=== PATIENT | female | born 1990 | race Caucasian/White ===

== ENCOUNTER 2020-10-03 13:46 | Inpatient (IN) | payer OTHER ==
[~2020-10-03] VITALS: Ht 170.2 cm; Wt 77.3 kg
[2020-10-03 15:47] LABS: BASOPHILS % (AUTO) 0.5 % (0.0-2.0); EOSINOPHILS % (AUTO) 0.1 % (1.0-6.0); HEMATOCRIT 34.3 % (36-46); HEMOGLOBIN 11.3 g/dL (12.0-16.0); LYMPHOCYTES # (AUTO) 1.1 K/uL (1.0-4.8); LYMPHOCYTES % (AUTO) 10.6 % (22.0-44.0); MEAN CORPUSCULAR HEMOGLOBIN 25.5 pg (26.0-34.0); MEAN CORPUSCULAR VOLUME 77 fL (80-100); MONOCYTES # (AUTO) 0.4 K/uL (0.1-1.0); MONOCYTES % (AUTO) 4.4 % (2.0-9.0); NEUTROPHILS # (AUTO) 8.6 K/uL (1.8-7.7); NEUTROPHILS % (AUTO) 84.4 % (40.0-70.0); PLATELET COUNT (AUTO) 321 K/uL (150-450); RED BLOOD CELL COUNT(AUTO) 4.44 MIL/uL (4.00-5.20); RED CELL DISTRIBUTION WIDTH 17.2 % (11.5-14.5)
[2020-10-03 15:55] LABS: ANION GAP 7 mmol/L (8-16); CALCIUM, TOTAL 9.6 mg/dL (8.8-10.5); CARBON DIOXIDE 29 mmol/L (22-29); CHLORIDE 100 mmol/L (98-107); CREATININE 0.96 mg/dL (0.60-1.30); GLOMERULAR FILTR. RATE CALC > 60 mL/min (>60); GLUCOSE,RANDOM 119 mg/dL (70-110); POTASSIUM 3.9 mmol/L (3.5-5.1); SODIUM SERUM 136 mmol/L (136-145); UREA NITROGEN, BLOOD 12 mg/dL (7-18)
[2020-10-03 16:01] LABS: AMPHET/METH SCREEN,URINE POSITIVE (NEGATIVE); BARBITURATE SCREEN, URINE NEGATIVE (NEGATIVE); BENZODIAZEPINES SCREEN,URINE NEGATIVE (NEGATIVE); CANNABINOID SCREEN,URINE NEGATIVE (NEGATIVE); COCAINE SCREEN,URINE NEGATIVE (NEGATIVE); METHADONE SCREEN, URINE NEGATIVE (NEGATIVE); OPIATE SCREEN,URINE POSITIVE (NEGATIVE)
[2020-10-03 16:02] LABS: PHENCYCLIDINE SCREEN,URINE NEGATIVE (NEGATIVE)
[2020-10-03 16:15] LABS: ALANINE AMINOTRANSFERASE 13 U/L (12-78); ALBUMIN 3.4 g/dL (3.4-5.0); ALKALINE PHOSPHATASE 80 U/L (46-116); ASPARTATE AMINOTRANSFERASE 14 U/L (15-37); BILIRUBIN,TOTAL 0.5 mg/dL (0.1-1.0); HCG,QUANTITATIVE 1 mIU/mL (0-6); TOTAL PROTEIN, SERUM 8.5 g/dL (6.4-8.2)
[2020-10-03] MEDS ORDERED: ACETAMINOPHEN 325 MG TABLET PO ONE (16:15)
[2020-10-03 16:19] LABS: COVID AG,FIA SOURCE NASOPHARYNGEAL
[2020-10-03 16:49] LABS: INFLUENZA TYPE A NEGATIVE FOR TYPE A (NEGATIVE); INFLUENZA TYPE B NEGATIVE FOR TYPE B (NEGATIVE)
[2020-10-03] MEDS ORDERED: CloNIDine HCL 0.1 MG TABLET PO ONE (17:00)
[2020-10-03] MEDS ORDERED: ONDANSETRON HCL 4 MG/2 ML VIAL IVP PRN ×2 (17:15→18:30)
[2020-10-03] MEDS ORDERED: ACETAMINOPHEN 325 MG TABLET PO PRN (17:15)
[2020-10-03] MEDS ORDERED: 0.9% SODIUM CHLORIDE 10 ML SYRINGE IVP PRN ×2 (17:15→18:30)
[2020-10-03 17:34] VITALS: BP 133/85
[2020-10-03] MEDS ORDERED: INFLUENZA VIRUS VACCINE QVS 2020-21 (6MO+)/PF 60 MCG/0.5 ML SYRINGE IM ONE (18:15)
[2020-10-03] MEDS ORDERED: CloNIDine HCL 0.1 MG TABLET PO PRN (18:30)
[2020-10-03] MEDS ORDERED: BISACODYL 10 MG RECTAL RECTAL SUPPOSITORY PR PRN (18:30)
[2020-10-03] MEDS: PANTOPRAZOLE SODIUM 40 MG DR TABLET PO SCH (18:30)
[2020-10-03] MEDS ORDERED: IPRATROPIUM BROMIDE 0.5 MG/2.5 ML NEB SOLUTION NEB PRN (18:30)
[2020-10-03] MEDS ORDERED: ALBUTEROL SULFATE 2.5 MG/0.5 ML NEB SOLUTION NEB PRN (18:30)
[2020-10-03] MEDS ORDERED: MAGNESIUM HYDROXIDE SUSPENSION 30 ML UDCUP PO PRN (18:30)
[2020-10-03 19:38] VITALS: BP 125/68
[2020-10-03] MEDS ORDERED: HYDROCODONE/ACETAMINOPHEN 5-325 MG TABLET PO ONE (21:30)
[2020-10-03 23:20] VITALS: BP 133/67
[2020-10-04 04:24] VITALS: BP 130/74
[2020-10-04] MEDS: FOLIC ACID 1 MG TABLET PO SCH (08:05)
[2020-10-04] MEDS: PANTOPRAZOLE SODIUM 40 MG DR TABLET PO SCH (08:05)
[2020-10-04] MEDS: MULTIVITAMINS, THERAPEUTIC TABLET PO SCH (08:05)
[2020-10-04] MEDS: THIAMINE 100 MG TABLET PO SCH (08:05)
[2020-10-04] MEDS: ACETAMINOPHEN 325 MG TABLET PO PRN (08:09)
[2020-10-04 08:36] LABS: BASOPHILS % (AUTO) 0.4 % (0.0-2.0); EOSINOPHILS % (AUTO) 0.6 % (1.0-6.0); HEMATOCRIT 33.5 % (36-46); HEMOGLOBIN 10.9 g/dL (12.0-16.0); LYMPHOCYTES # (AUTO) 1.7 K/uL (1.0-4.8); LYMPHOCYTES % (AUTO) 17.7 % (22.0-44.0); MEAN CORPUSCULAR HGB CONC 32.4 G/dL (31.0-37.0); MEAN CORPUSCULAR VOLUME 77 fL (80-100); MONOCYTES # (AUTO) 0.6 K/uL (0.1-1.0); MONOCYTES % (AUTO) 6.8 % (2.0-9.0); NEUTROPHILS % (AUTO) 74.5 % (40.0-70.0); PLATELET COUNT (AUTO) 327 K/uL (150-450); RED BLOOD CELL COUNT(AUTO) 4.34 MIL/uL (4.00-5.20); RED CELL DISTRIBUTION WIDTH 17.2 % (11.5-14.5)
[2020-10-04 08:53] LABS: ANION GAP 9 mmol/L (8-16); CALCIUM, TOTAL 8.9 mg/dL (8.8-10.5); CARBON DIOXIDE 25 mmol/L (22-29); CHLORIDE 102 mmol/L (98-107); CREATININE 0.95 mg/dL (0.60-1.30); GLOMERULAR FILTR. RATE CALC > 60 mL/min (>60); GLUCOSE,RANDOM 127 mg/dL (70-110); SODIUM SERUM 136 mmol/L (136-145); UREA NITROGEN, BLOOD 11 mg/dL (7-18)
[2020-10-04 09:01] VITALS: BP 130/76
[2020-10-04 15:27] VITALS: BP 106/65
[2020-10-04] MEDS: TraZODone HCL 50 MG TABLET PO PRN (20:22)
[2020-10-04 20:50] VITALS: BP 106/52
[2020-10-05 04:29] VITALS: BP 116/67
[2020-10-05] MEDS: ACETAMINOPHEN 325 MG TABLET PO PRN ×2 (04:32→08:43)
[2020-10-05 07:24] LABS: BASOPHILS % (AUTO) 0.5 % (0.0-2.0); EOSINOPHILS % (AUTO) 0.5 % (1.0-6.0); HEMATOCRIT 34.1 % (36-46); HEMOGLOBIN 11.2 g/dL (12.0-16.0); LYMPHOCYTES # (AUTO) 2.5 K/uL (1.0-4.8); LYMPHOCYTES % (AUTO) 22.3 % (22.0-44.0); MEAN CORPUSCULAR HEMOGLOBIN 25.4 pg (26.0-34.0); MEAN CORPUSCULAR HGB CONC 32.9 G/dL (31.0-37.0); MEAN CORPUSCULAR VOLUME 77 fL (80-100); MONOCYTES # (AUTO) 0.9 K/uL (0.1-1.0); MONOCYTES % (AUTO) 8.2 % (2.0-9.0); NEUTROPHILS # (AUTO) 7.7 K/uL (1.8-7.7); NEUTROPHILS % (AUTO) 68.5 % (40.0-70.0); PLATELET COUNT (AUTO) 341 K/uL (150-450); RED BLOOD CELL COUNT(AUTO) 4.41 MIL/uL (4.00-5.20); RED CELL DISTRIBUTION WIDTH 17.1 % (11.5-14.5)
[2020-10-05 07:38] LABS: ANION GAP 9 mmol/L (8-16); CARBON DIOXIDE 25 mmol/L (22-29); CHLORIDE 103 mmol/L (98-107); CREATININE 1.04 mg/dL (0.60-1.30); GLOMERULAR FILTR. RATE CALC > 60 mL/min (>60); GLUCOSE,RANDOM 104 mg/dL (70-110); POTASSIUM 3.7 mmol/L (3.5-5.1); SODIUM SERUM 137 mmol/L (136-145); UREA NITROGEN, BLOOD 14 mg/dL (7-18)
[2020-10-05] MEDS: PANTOPRAZOLE SODIUM 40 MG DR TABLET PO SCH (08:30)
[2020-10-05] MEDS: FOLIC ACID 1 MG TABLET PO SCH (08:30)
[2020-10-05] MEDS: THIAMINE 100 MG TABLET PO SCH (08:31)
[2020-10-05] MEDS: MULTIVITAMINS, THERAPEUTIC TABLET PO SCH (08:31)
[2020-10-05 08:33] VITALS: BP 122/69
[2020-10-05] MEDS ORDERED: DEXAMETHASONE SOD PHOS 4 MG/ML VIAL IVP ONE (12:00)
[2020-10-05] MEDS ORDERED: PROPOFOL 1% 20 ML VIAL IVP ONE (12:00)
[2020-10-05] MEDS ORDERED: LIDOCAINE/PF 2% 5 ML VIAL INJ ONE (12:00)
[2020-10-05] MEDS ORDERED: NEOSTIGMINE METHYLSULFATE 1 MG/ML 10 ML VIAL IVP ONE (12:00)
[2020-10-05] MEDS ORDERED: ROCURONIUM BROMIDE 10 MG/ML 5 ML VIAL IVP ONE (12:00)
[2020-10-05] MEDS ORDERED: KETOROLAC TROMETHAMINE 60 MG/2 ML VIAL IM ONE (12:00)
[2020-10-05] MEDS ORDERED: GLYCOPYRROLATE 0.2 MG/ML VIAL IM ONE (12:00)
[2020-10-05] MEDS ORDERED: ONDANSETRON HCL 4 MG/2 ML VIAL IVP ONE (12:00)
[2020-10-05] MEDS ORDERED: VANCOMYCIN HCL 1 GM/D5% WATER 200 ML IV ONE (16:00)
[2020-10-05] MEDS ORDERED: SODIUM CHLORIDE 0.9% 500 ML IV ONE (16:13)
[2020-10-05] MEDS ORDERED: IBUPROFEN 400 MG TABLET PO PRN (17:30)
[2020-10-05] MEDS ORDERED: KETOROLAC TROMETHAMINE 15 MG/ML VIAL IVP ONE (17:30)
[2020-10-05] MEDS: CefTRIAXone 1 GM/DEXTROSE 50 ML IV SCH (17:31)
[2020-10-05 18:15] VITALS: BP 133/77
[2020-10-05] MEDS ORDERED: ACETAMINOPHEN 1000 MG/ISO-OSM 100 ML IV ONE ×2 (18:15→19:35)
[2020-10-05] MEDS ORDERED: RINGERS SOLUTION,LACTATED 1,000 ML IV ONE (18:16)
[2020-10-05] MEDS ORDERED: BUPIVACAINE HCL/PF 0.25% 30 ML VIAL ONE (18:58)
[2020-10-05] MEDS ORDERED: ROPIVACAINE HCL/PF 0.2% 100 ML ED ONE (18:59)
[2020-10-05] MEDS ORDERED: HYDROCODONE/ACETAMINOPHEN 5-325 MG TABLET PO PRN (19:15)
[2020-10-05] MEDS ORDERED: ONDANSETRON HCL 4 MG/2 ML VIAL IM PRN (19:15)
[2020-10-05] MEDS ORDERED: MORPHINE SULFATE 2 MG/ML SYRINGE IVP PRN (19:15)
[2020-10-05] MEDS ORDERED: IBUPROFEN 800 MG TABLET PO PRN (19:15)
[2020-10-05] MEDS: OXYGEN THERAPY IH SCH (20:00)
[2020-10-05 20:10] VITALS: BP 124/65
[2020-10-05] MEDS: IBUPROFEN 800 MG TABLET PO PRN (20:24)
[2020-10-05] MEDS: TraZODone HCL 50 MG TABLET PO PRN (20:24)
[2020-10-05 23:28] VITALS: BP 120/66
[2020-10-05] MEDS: HYDROCODONE/ACETAMINOPHEN 5-325 MG TABLET PO PRN (23:55)
[2020-10-06 05:00] VITALS: BP 129/69
[2020-10-06] MEDS: ACETAMINOPHEN 500 MG TABLET PO PRN (05:12)
[2020-10-06 07:28] LABS: BASOPHILS % (AUTO) 0.6 % (0.0-2.0); EOSINOPHILS % (AUTO) 0 % (1.0-6.0); HEMATOCRIT 34.4 % (36-46); HEMOGLOBIN 11.3 g/dL (12.0-16.0); LYMPHOCYTES # (AUTO) 2.6 K/uL (1.0-4.8); LYMPHOCYTES % (AUTO) 23.3 % (22.0-44.0); MEAN CORPUSCULAR HEMOGLOBIN 25.4 pg (26.0-34.0); MEAN CORPUSCULAR HGB CONC 32.8 G/dL (31.0-37.0); MEAN CORPUSCULAR VOLUME 78 fL (80-100); MONOCYTES # (AUTO) 0.6 K/uL (0.1-1.0); MONOCYTES % (AUTO) 5.3 % (2.0-9.0); NEUTROPHILS # (AUTO) 7.9 K/uL (1.8-7.7); NEUTROPHILS % (AUTO) 70.8 % (40.0-70.0); PLATELET COUNT (AUTO) 373 K/uL (150-450); RED BLOOD CELL COUNT(AUTO) 4.44 MIL/uL (4.00-5.20); RED CELL DISTRIBUTION WIDTH 17.5 % (11.5-14.5)
[2020-10-06] MEDS: OXYGEN THERAPY IH SCH (08:00)
[2020-10-06 08:01] LABS: ALBUMIN 3.2 g/dL (3.4-5.0); BILIRUBIN,TOTAL 0.3 mg/dL (0.1-1.0); CALCIUM, TOTAL 9.5 mg/dL (8.8-10.5); CREATININE 1.13 mg/dL (0.60-1.30); POTASSIUM 4.1 mmol/L (3.5-5.1); TOTAL PROTEIN, SERUM 8.4 g/dL (6.4-8.2)
[2020-10-06 08:03] VITALS: BP 131/76
[2020-10-06] MEDS: VANCOMYCIN HCL 1.25 GM in DEXTROSE 5%-WATER 250 ML IV SCH ×2 (08:08→19:35)
[2020-10-06] MEDS: MULTIVITAMINS, THERAPEUTIC TABLET PO SCH (08:09)
[2020-10-06] MEDS: FOLIC ACID 1 MG TABLET PO SCH (08:09)
[2020-10-06] MEDS: THIAMINE 100 MG TABLET PO SCH (08:10)
[2020-10-06] MEDS: PANTOPRAZOLE SODIUM 40 MG DR TABLET PO SCH (08:10)
[2020-10-06 11:14] VITALS: BP 136/83
[2020-10-06] MEDS: HYDROCODONE/ACETAMINOPHEN 5-325 MG TABLET PO PRN ×3 (11:26→21:15)
[2020-10-06 15:25] VITALS: BP 131/82
[2020-10-06] MEDS: CefTRIAXone 1 GM/DEXTROSE 50 ML IV SCH (15:53)
[2020-10-06] MEDS: TraZODone HCL 50 MG TABLET PO PRN (19:35)
[2020-10-06 19:49] VITALS: BP 125/68
[2020-10-07 00:14] VITALS: BP 134/67
[2020-10-07] MEDS: IBUPROFEN 800 MG TABLET PO PRN (02:38)
[2020-10-07] MEDS: HYDROCODONE/ACETAMINOPHEN 5-325 MG TABLET PO PRN ×2 (04:25→10:56)
[2020-10-07 04:26] VITALS: BP 119/73
[2020-10-07 06:38] LABS: BASOPHILS % (AUTO) 0.9 % (0.0-2.0); EOSINOPHILS % (AUTO) 1.2 % (1.0-6.0); HEMATOCRIT 33.4 % (36-46); HEMOGLOBIN 11.1 g/dL (12.0-16.0); LYMPHOCYTES # (AUTO) 2.9 K/uL (1.0-4.8); LYMPHOCYTES % (AUTO) 32.4 % (22.0-44.0); MEAN CORPUSCULAR HEMOGLOBIN 25.9 pg (26.0-34.0); MEAN CORPUSCULAR HGB CONC 33.2 G/dL (31.0-37.0); MEAN CORPUSCULAR VOLUME 78 fL (80-100); MONOCYTES # (AUTO) 0.6 K/uL (0.1-1.0); MONOCYTES % (AUTO) 6.8 % (2.0-9.0); NEUTROPHILS # (AUTO) 5.3 K/uL (1.8-7.7); NEUTROPHILS % (AUTO) 58.7 % (40.0-70.0); PLATELET COUNT (AUTO) 349 K/uL (150-450); RED BLOOD CELL COUNT(AUTO) 4.28 MIL/uL (4.00-5.20); RED CELL DISTRIBUTION WIDTH 17.3 % (11.5-14.5)
[2020-10-07 06:42] LABS: CALCIUM, TOTAL 8.9 mg/dL (8.8-10.5); CREATININE 1.25 mg/dL (0.60-1.30)
[2020-10-07] MEDS: VANCOMYCIN HCL 1.25 GM in DEXTROSE 5%-WATER 250 ML IV SCH (08:04)
[2020-10-07 08:13] VITALS: BP 136/75
[2020-10-07] MEDS: FOLIC ACID 1 MG TABLET PO SCH (08:29)
[2020-10-07] MEDS: MULTIVITAMINS, THERAPEUTIC TABLET PO SCH (08:29)
[2020-10-07] MEDS: THIAMINE 100 MG TABLET PO SCH (08:29)
[2020-10-07] MEDS: PANTOPRAZOLE SODIUM 40 MG DR TABLET PO SCH (08:29)
[2020-10-07] MEDS ORDERED: CEFU250T87 PO (12:30)
[2020-10-07] MEDS ORDERED: BACTDSB PO (12:30)
[2020-10-07] MEDS: CefTRIAXone 1 GM/DEXTROSE 50 ML IV SCH (16:00)
[2020-10-07] MEDS: ACETAMINOPHEN 500 MG TABLET PO PRN (17:40)
== END 2020-10-07 18:20 | DRG 584 ==
LOC: EMS 13:49 → 6S 17:12
PROVIDERS: ADMIT Internal Medicine; ATTEND Internal Medicine
PROC: 0H9T0ZX Drainage of Right Breast, Open Approach, Diagnostic (ICD-10-PCS; principal; 2020-10-05 18:45)
DX: N61.1 Abscess of the breast and nipple (principal); F11.23 Opioid dependence with withdrawal; D50.9 Iron deficiency anemia, unspecified; F17.210 Nicotine dependence, cigarettes, uncomplicated; Z98.51 Tubal ligation status; Z88.0 Allergy status to penicillin; Z20.828 Contact with and (suspected) exposure to other viral communicable diseases
CPT/HCPCS: 76881; 76999; 82728; 83540; 83550; 84145; 87070; 87205; 87426; 87804; 88304; G0480; J0131; J0696; J1100; J1885; J2405; J2704; J2795; J3370; J3490; J7040; J7060; J7120